=== PATIENT | male | born 1945 | race Caucasian/White ===

== ENCOUNTER 2018-09-17 09:56 | Inpatient (IN) ==
[2018-09-17] MEDS ORDERED: NS 2,000 ML ONE (10:10)
[2018-09-17] MEDS ORDERED: NS 2,000 ML IV ONE (11:25)
--- NOTE | 2018-09-17 11:43 | Diag Imaging Result Doc PS360 ---
EXAM: CHEST-1 VIEW 09/17/2018 HISTORY: hypotensive TECHNIQUE: AP portable upright at 1129 COMMENT: There is cardiomegaly. There are sternotomy wires. There is mild interstitial pulmonary edema. There are no previous studies available for comparison. IMPRESSION: Cardiomegaly and mild pulmonary edema. Electronically signed by Jerardo Yanez 09/17/2018 11:41 AM
--- NOTE | 2018-09-17 12:58 | EKG Report ---
Test Performed on : 09/17/2018 10:18:56 AM Test Reason : AFIB Blood Pressure : / mmHG Vent. Rate : 109 BPM Atrial Rate : 092 BPM P-R Int : 000 ms QRS Dur : 084 ms QT Int : 316 ms P-R-T Axes : 000 -27 187 degrees QTc Int : 425 ms Atrial fibrillation. with rapid ventricular response. ST & T wave abnormality, consider anterolateral ischemia Abnormal ECG No previous ECGs available Unconfirmed Result
[2018-09-17 13:06] LABS: BASO# 0.03 X1000 (0.0-0.2); BASO% 0.2 % (0.0-0.8); IMM GRAN# 0.05 X1000 (0.0-0.04); IMM GRAN% 0.3 % (0.0-0.5); LYMPH# 2.39 X1000 (1.2-3.4); LYMPH% 15.3 % (20.5-51.1); MCH 28.6 PG (27-31); MCHC 32.6 g/dL (33-37); MCV 87.9 FL (81-99); MONO# 2.61 X1000 (0.11-0.59); MONO% 16.7 % (1.7-9.3); MPV 10.7 FL (7.4-10.4); NEUT# 10.56 X1000 (1.4-6.5); NEUT% 67.5 % (42.2-75.2); PLT 150 X1000 (130-400); RBC 4.89 XMIL (4.7-6.1); RDW 14.1 % (11.5-14.5); WBC 15.64 X1000 (4.8-10.8)
[2018-09-17 13:17] LABS: ALBUMIN 3.5 g/dL (3.5-5.0); CREATININE 7.3 mg/dL (0.7-1.2); POTASSIUM 4.5 mmol/L (3.5-5.1); TOTAL BILIRUBIN 0.22 mg/dL (0.20-1.00); TOTAL PROTEIN 6.9 g/dL (6.3-8.3)
[2018-09-17] MEDS ORDERED: VANCOMYCIN 1 GM/NS 1 GM/250 ML IVPB IV ONE (13:52)
[2018-09-17] MEDS ORDERED: ZOSYN 3.375 GM in NS 50 ML IV ONE (13:52)
[2018-09-17 13:57] LABS: LYMPHS 14 % (21-51); MONO 15 % (1-9); POLYCHROM 1+; SEGS 71 % (42-75)
[2018-09-17] MEDS ORDERED: NEO-SYNEPHRINE 50 MG in NS 250 ML IV SCH (14:00)
--- NOTE | 2018-09-17 14:56 | Diag Imaging Result Doc PS360 ---
EXAM: CT ABDOMEN/PELVIS W/O CONTRAST 09/17/2018 HISTORY: N/V/D, leukocytosis, elev lactate TECHNIQUE: This exam was performed using automated exposure control, adjustment of mA or kV according to patient size, and/or use of iterative reconstruction technique. COMMENT: There is minimal fibrosis in the posterior costophrenic sulcus of the right lower lobe, this was present at the time the previous study of 04/01/2018. The liver is hypodense suggesting fatty change. The spleen and adrenal glands are not enlarged. The pancreas is grossly normal considering the lack of contrast. There has been cholecystectomy. There are vascular calcifications in the aorta and its branches including a branch vessel in the left renal sinus. There is a similar finding in the right kidney. There is no evidence of nephrolithiasis or hydronephrosis. There is fluid in the colon without evidence of mucosal thickening. There are some segments of small bowel which are distended containing fluid without definite transition zone. There is a loop of small bowel in the right lower quadrant around image 136 which may demonstrate some mucosal thickening. There is no evidence of acute bony abnormality. There is diverticulosis in the sigmoid colon without evidence of diverticulitis. There are calcifications anterior to the sigmoid colon which have not changed since the previous study. The appendix is normal in appearance. There is fluid in the rectum. IMPRESSION: The possibility of enterocolitis is suggested. No evidence of abscess, acute diverticulitis or obstructive uropathy is present. Hepatic steatosis. Electronically signed by Jerardo Yanez 09/17/2018 2:53 PM
--- NOTE | 2018-09-17 15:03 | PROVIDER DOCUMENTATION ---
This chart was entered by Radha Chaudhry Scribe, acting as scribe for Parker Sky MD. HPI-Abdominal Pain/GI Problem - General Chief Complaint: N/V/D Stated Complaint: N/V/D Time Seen by Provider: 09/17/18 10:08 Source: patient, family, EMS Allergies/Adverse Reactions: Patient Allergies Allergy/AdvReac Type Severity Reaction Status Date / Time No Known Allergies Allergy Verified 09/17/18 11:22 Home Medications: Home Medication List Medication Instructions Recorded Confirmed Last Taken Type ATORVAstatin [Lipitor] 20 mg PO DAILY 09/17/18 09/17/18 Unknown History Amlodipine Besylate 2.5 mg PO DAILY 09/17/18 09/17/18 Unknown History Apixaban [Eliquis] 5 mg PO BID 09/17/18 09/17/18 Unknown History Cholecalciferol (Vit D3) [Vitamin 1 tab PO DAILY 09/17/18 09/17/18 Unknown History D3] Clopidogrel [Plavix] 75 mg PO DAILY 09/17/18 09/17/18 Unknown History Cyanocobalamin (Vitamin B-12) 1,000 mcg PO DAILY 09/17/18 09/17/18 Unknown History [B-12] Glipizide 5 mg PO BID 09/17/18 09/17/18 Unknown History Latanoprost 0.005% Oph Soln 1 drp BOTH EYES HS 09/17/18 09/17/18 Unknown History [Xalatan 0.005% Oph Soln] Lisinopril 10 mg PO TID 09/17/18 09/17/18 Unknown History Metformin [Glucophage] 500 mg PO BID 09/17/18 09/17/18 Unknown History Nitroglycerin Sl [Nitroglycerin] 1 tab SUBLINGUAL PRN PRN 09/17/18 09/17/18 Unknown History Terazosin [Hytrin] 2 mg PO BID 09/17/18 09/17/18 Unknown History - History of Present Illness-ABD Nature of Presenting Problems: 72 yowm presents to the ed with c/o n/v/d and COELHO for 3 days. pt sts no abdominal pain just nausea with vomiting and diarrhea. pt on exam looks fatigued and is resting in bed with no active vomiting seen Quality of Pain: reports: other (denies pain c/o causea) Onset/Duration: reports: 3 days ago Timing: reports: still present, intermittent Activities at Onset: reports: light activity Exposure to sick contacts?: No Modifying Factors: improves with: nothing Associated Symptoms: reports: diarrhea, fatigue, headaches, nausea, vomiting. denies: back/neck pain, chest pain, dizziness, fever/chills, shortness of breath Last BM: this morning Dark Stools Present?: reports: bright red blood (when wipes) Rectal Bleeding: reports: bright red blood on paper (but sts from diarrhea) # of Diarrhea Episodes: 4 Rectal Pain: reports: none # of Vomiting Episodes: 3 Emesis Description: reports: other (food) Bruising or Bleeding Gums?: No Similar Symptoms Previously?: No Recently seen or treated by another doctor?: No Review of Systems - Adult - REVIEW OF SYSTEMS - ADULT Constitutional: reports: jeremiah. denies: chills, fever Eyes: reports: no symptoms reported Ears, Nose, Mouth & Throat: reports: no symptoms reported Cardiovascular: denies: chest pain, palpitations Respiratory: denies: cough, shortness of breath, wheezing Gastrointestinal: reports: see HPI, diarrhea, nausea, rectal bleeding (when wipes), vomiting. denies: abdominal pain Genitourinary: reports: no symptoms reported Musculoskeletal: denies: back pain, neck pain Integumentary: reports: no symptoms reported Neurological: reports: see HPI, headache/migraines. denies: ataxia, dizzine ss/vertigo, numbness, paresthesia, seizure, slurred speech, syncope, tremors Psychiatric: reports: no symptoms reported Endocrine: reports: no symptoms reported Hematologic/Lymphatic: reports: no symptoms reported Allergic/Immunologic: reports: no symptoms reported All Other Systems: Reviewed and Negative Past History - Adult - PAST MEDICAL HISTORY-ADULT Review of Records: reports: Nursing Assessment Review, Medications Reviewed Major Childhood Illnesses: reports: denies history Cardiovascular: reports: A-Fib, CAD, HTN Respiratory: reports: denies history Gastrointestinal: reports: denies history Genitourinary: reports: kidney stones Musculoskeletal: reports: denies history Hand Dominance: Right Handed Neurological: reports: denies history Psychiatric: reports: denies history Endocrine/Immune: reports: denies history Other Conditions: reports: other cancer - PRIOR SURGERIES/PROCEDURES Surgical/Procedure History: reports: CABG, cholecystectomy - IMMUNIZATION STATUS Childhood Immunizations: See Nurse Assessment Flu Vaccine: See Nurse Assessment - FAMILY HISTORY Family History: reviewed, not pertinent - SOCIAL HISTORY Smoking: denies Substance Use: denies Living Situation: family Physical Exam-General - PHYSICAL EXAM-ADULT Initial Vital Signs Reviewed: Yes (BP-87/41 HR-109) - CONSTITUTIONAL General Appearance: alert, mild distress, obese. negative: appears well - EYES Eyes: PERRL/EOMI, pink conjunctivae - HEAD, EARS, NOSE, MOUTH & THROAT HENMT: normocephalic/atraumatic. negative: moist mucous membranes (dry) - NECK Neck: non-tender, full range of motion, normal inspection - RESPIRATORY Respiratory: chest non-tender, lungs clear, normal breath sounds - CARDIOVASCULAR Cardiovascular: irregularly irregular (afib) - GASTROINTESTINAL (ABDOMEN) Abdominal Exam: soft, abnormal bowel sounds (hyper), tenderness (RUQ and RLQ with palpation). negative: rigid, rebound - LYMPHATIC Lymphatic: no adenopathy - MUSCULOSKELETAL Back Exam: normal inspection, no CVA tenderness, no vertebral tenderness Extremity: normal range of motion, swelling (BLE) - SKIN Integumentary: warm/dry, pallor - NEUROLOGIC Neurologic: grossly normal - PSYCHIATRIC Psych/Mental Status: normal mood/affect, normal thought content, normal thought process, oriented x 3 Progress - PLAN OF CARE/RESULTS Progress/Plan/Lab Results: Vital Signs - 8 hr 09/17/18 10:05 Temperature 97.4 F L Pulse Rate 128 H Respiratory Rate 18 Blood Pressure 80/52 Orders Category Date Time Status 0.9% Sodium Chloride Inj [Ns] 1,000 ml Med 09/17/18 10:10 Discontinued .ROUTE As directed Result Diagrams: 09/17/18 12:50 09/17/18 12:50 - REASSESSMENT Reassessment #1 Time Reassessed: 11:27 Status: unchanged Reassessment Comment: pt is resting in bed Reassessment #2 Time Reassessed: 14:08 (HR down, still hypotensive, abd is soft, NT) Status: improving - EKG 1 Time of EKG reading by physician:: 10:32 EKG Read and Signed by:: Parker Sky EKG Interpretation (*Must complete 3 of following elements*): Abnormal Rate: 109 Rhythm: afib with rvr [place]aver: normal QRS: normal VA Interval: normal Comments: st and t wave abnormality, consider anterolateral ischemia - XRAY 1 XRAY: Bilateral XRAY Study: Chest Impression: See EMR Report (EXAM: CHEST-1 VIEW 09/17/2018 HISTORY: hypotensive TECHNIQUE: AP portable upright at 1129 COMMENT: There is cardiomegaly. There are sternotomy wires. There is mild interstitial pulmonary edema. There are no previous studies available for comparison. IMPRESSION: Cardiomegaly and mild pulmonary edema. Electronically signed by Jerardo Yanez 09/17/2018 11:41 AM 09/17/18 1141 Interpreting Physician: Jerardo Yanez MD Dictated D ate/Time: 09/17/18 1140 cc: Parker Sky MD; Magalys Driscoll MD) - CONSULTS/PCP/HOSPITALIST Notification #1 *Consult/PCP/Hospitalist*: [place] Time Discussed: 15:03 Consult Disposition: Will see in ED, Admit Departure - Departure Date of Disposition Decision: 09/17/18 Time of Disposition Decision: 14:04 DIAGNOSIS: Atrial fibrillation with RVR, Hypotension, Acute kidney injury Sepsis Qualifiers: Sepsis type: sepsis due to unspecified organism Qualified Code(s): A41.9 - Seps is, unspecified organism Disposition: ADMITTED INPATIENT 09 Certified Medical Emergency: Emergent Condition: Fair Referrals and Follow-Ups: Magalys Driscoll MD [Primary Care Provider] - - Critical Care Note This patient required my direct & personal management of CC.: Yes Total Time (mins): 40 Critical Care Statement: This patient required my direct personal management to treat or rule out processes, the absence of which, could potentiallly result in sudden, clinically significant life or limb threatening deterioration. Attestation - Physician/ TROY Attestation Patient care was provided by Advanced Practice Provider:: No The physician spent face to face time with patient:: Yes Advanced Practice Provider documentation review:: Supervising physician onsite and consulted in the evaluation and care of this patient. The physician did have a face to face encounter with the patient. This chart was documented by the indicated scribe, (Radha Chaudhry Scribe) and accurately reflects the services I performed and decisions made by me, Parker Sky MD, as attested by the provider's signature.
[2018-09-17] MEDS ORDERED: HUMALOG SUBQ SCH (16:00)
--- NOTE | 2018-09-17 16:59 | EKG Report ---
Test Performed on : 09/17/2018 4:55:41 PM Test Reason : reassess afib Blood Pressure : / mmHG Vent. Rate : 099 BPM Atrial Rate : 087 BPM P-R Int : 000 ms QRS Dur : 080 ms QT Int : 316 ms P-R-T Axes : 000 -38 182 degrees QTc Int : 405 ms Atrial fibrillation. Left axis deviation T wave abnormality, consider inferior ischemia T wave abnormality, consider anterolateral ischemia Abnormal ECG When compared with ECG of 17-SEP-2018 10:18, (Unconfirmed) No significant change was found Confirmed by Ashley NGUYEN, Elvin ([id number]) on 09/17/2018 6:26:29 PM
[2018-09-17] MEDS ORDERED: NS 1,000 ML IV SCH (17:07)
[2018-09-17] MEDS ORDERED: ZOFRAN IV PRN (17:07)
[2018-09-17] MEDS ORDERED: VANCOMYCIN IV PER PHARMACY MISC SCH (17:07)
[2018-09-17] MEDS ORDERED: NS 1,000 ML IV ONE (17:07)
[2018-09-17 17:25] LABS: ALLEN TEST YES; BE -15.1 mmoll (-3.0-3.0); BLOOD TYPE ARTERIAL; HCO3-(ACT) 13.1 mmoll (20.0-26.0); METHB 1.3 % (0.0-1.5); O2(CT) 20.7 mL/dL (15.0-23.0); O2HB 95.4 % (95.0-99.0); PCO2(98.6) 24 mmHg (35-45); PO2(98.6) 90 mmHg (60-100); SAMPLE BLOOD; SAO2 98.6 % (95.0-100.0); THB 15.4 g/dL (11.5-17.4); pH(98.6) 7.24 (7.35-7.45)
[2018-09-17 17:26] LABS: MODALITY ROOM AIR
--- NOTE | 2018-09-17 17:54 | HISTORY AND PHYSICAL ---
PRIMARY CARE PROVIDER: Dr. Magalys Driscoll. CYBER SECURITY CONSULTANT: Dr. Freeman. CHIEF COMPLAINT: Nausea, vomiting, and diarrhea. HISTORY OF PRESENT ILLNESS: Mr. Galvan is an ill-appearing, 72-year-old male who carries a past medical history of atrial fibrillation, coronary artery disease, hypertension, kidney stones, basal cell skin cancer, diabetes mellitus, just moved here from [place] over a year ago. Per his , around 3:30 a.m. on Saturday morning he woke up with nausea, vomiting, and diarrhea. He vomited about every half hour for the first 10 hours but throughout the rest of the day Saturday he did not have any p.o. intake. On Saturday he had a half a cup of Jell-O, some ice chips, and some sips of cola. He was able to keep those down. However, any time she would try to crush up his medications and give them to him, 5 minutes later he would vomit them back up. This has been ongoing since Saturday. He has had numerous episodes of diarrhea. She has had to change their bed sheets over 5 times. She states that they ate the same diet, the same foods. She is unsure if he maybe picked up stomach virus at the store. However, they have been eating the same foods since prior to Saturday. She brought him in the ED because he was too weak and could not keep anything down. In the ER, he did have an elevated white count, a BUN of 46, and a creatinine of 7.3. Abdomen and pelvis CT showed the possibility of enterocolitis. He had a lactate of 3. His chest x-ray did not show any pneumonia. It did show cardiomegaly and some mild pulmonary edema. He was initiated on the sepsis protocol, broad-spectrum antibiotics. He has been given 3 L bolus of fluid. He was also in atrial fibrillation with RVR. He continues to be in atrial fibrillation; however, he does not appear to be in RVR. We are rechecking an EKG. He had to be placed on a Arron-Synephrine drip for hypotension in the 70s. He is hanging around upper 80s and 90s at this time. Heart rate is anywhere from 80s to low 100s. We will admit him to the ICU for further evaluation and treatment. PAST MEDICAL HISTORY: 1. Atrial fibrillation with RVR. 2. Coronary artery disease. 3. Hypertension. 4. Kidney stones. 5. Basal cell skin carcinoma. 6. Diabetes mellitus. PAST SURGICAL HISTORY: 1. CABG x2 in [place]. 2. Cholecystectomy. SOCIAL HISTORY: The patient lives in [place]. He just moved from [place] with his 1 year ago for group home and family. FAMILY HISTORY: Reviewed and noncontributory. REVIEW OF SYSTEMS: A 14 point review of systems completely negative except for those mentioned in HPI. ALLERGIES: No known drug allergies. HOME MEDICATIONS: 1. Norvasc 2.5 mg p.o. daily. 2. Eliquis 5 mg p.o. b.i.d. 3. Lipitor 20 mg p.o. daily. 4. Vitamin D3 one tablet p.o. daily. 5. Plavix 75 mg p.o. daily. 6. Vitamin B12 1000 mcg p.o. daily. 7. Glipizide 5 mg p.o. b.i.d. 8. Xalatan 0.005% ophthalmic solution, 1 drop both eyes at bedtime. 9. Lisinopril 10 mg p.o. t.i.d. 10. Glucophage 500 mg p.o. b.i.d. 11. Nitroglycerin sublingual p.r.n. chest pain. 12. Hytrin 2 mg p.o. b.i.d. PHYSICAL EXAMINATION: VITAL SIGNS: Temperature is 97.4 degrees. Initial heart rate was in the 150s. He is now 92. Respirations 16. Blood pressure upon arrival was 80s over 50s, dipped down to the 70s. He is hanging around low 80s upper 90s over 50s and 60s. O2 saturation is 96% on room air. GENERAL: Mr. Galvan is an ill-appearing, 72-year-old male who is lying on the stretcher, in no acute distress. HEENT: Atraumatic, normocephalic. SHIRLEY. Mucous membranes are dry. NECK: Supple. Trachea midline. CARDIOVASCULAR: Irregular rate and rhythm. No murmurs, gallops, or rubs noted. RESPIRATORY: Lung sounds clear bilaterally. ABDOMEN: Soft, nontender, nondistended. Positive bowel sounds 4 quadrants. EXTREMITIES: Lower extremities negative for edema. No signs of clubbing or cyanosis. NEUROLOGIC: Patient is sleepy, but he does awaken easily. He answers questions appropriately. He follows commands and moves all extremities. No focal deficits noted. SKIN: Appears to be warm, dry, and intact. DIAGNOSTIC DATA: 1. Abdomen and pelvis CT: Possibility of enterocolitis is suggested. No evidence of abscess, acute diverticulitis, or obstructive uropathy is present. Hepatic steatosis. 2. Chest x-ray: Cardiomegaly and mild pulmonary edema. LABORATORY DATA: White count 15, hemoglobin and hematocrit 14 and 43, platelet count is a 150,000. Chemistry: Sodium 137, potassium 4.5, BUN 46, creatinine 7.3, blood glucose is 129. Plasma lactate is 3. ASSESSMENT AND PLAN: 1. Sepsis, believed to be related to a enterocolitis. We will check stool studies. Continue with IV hydration. He was initiated on the sepsis protocol. He has been given 3 L of fluid. We will continue with high rate IV fluids, broad-spectrum antibiotics. Check stool cultures. Antiemetics. 2. Hypovolemia secondary to nausea, vomiting, and diarrhea. We will hold him NPO except for sips of water and ice chips or now. We will continue with antiemetics. Check stool cultures. 3. Atrial fibrillation with rapid ventricular response. Patient's heart rate is better with aggressive hydration. 4. Anion gap metabolic acidosis, continue with IV hydration, check ABG may switch to LR or bicarb drip, await renals recommendations as well. 5. Hypotension secondary to sepsis/shock initiated on Arron-Synephrine drip. 6. Hypertension. Continue Arron-Synephrine. 7. Acute renal failure. Probable in the setting of dehydration secondary to his nausea, vomiting, and diarrhea. We will continue with aggressive IV hydration. We will check extra labs. Consult Nephrology. Check a renal ultrasound in the a.m. 8. Diabetes mellitus. Will place him on pattern blood sugars and sliding scale. 9. Coronary artery disease status post coronary artery bypass graft. Aware. 10. Hypertension. The patient is actually hypotensive. 11. Basal cell skin cancer history. Aware. 12. Further recommendations to follow physician evaluation, laboratory and diagnostic data. Dictated by NGHIA Carranza for Stanley Zambrano MD cc: MD Magalys Aguilar MD Luis N. Freeman, MD [facility] CENTERMarleni
[2018-09-17] MEDS: MAXIPIME 1 GM in NS 50 ML IV SCH (18:20)
--- NOTE | 2018-09-17 18:33 | HISTORY AND PHYSICAL ---
ADDENDUM TO HISTORY AND PHYSICAL: Mr. Sandoval is a 72-year-old gentleman who came to the emergency room today. He was just so weak and feeble where the gave me most of the history. Mr. Sandoval is known to have atrial fibrillation, hypertension, coronary artery disease status post CABG 2 times, follows up with Dr. Freeman, who seems to have been in his regular state of health until 3 days ago after Saturday judaism he started having remarkable diarrhea and vomiting, which went on for most of the day. It continued for the past 3 days. Has just been had just been extremely weak and bed-bound, so the decided to bring him to the emergency room today. Upon presentation, he was found to be remarkably hypotensive with initial blood pressure of 80/57. It has gone all the way down to 75/50 at one point. He was also in atrial fibrillation RVR, but the rate is a lot better now. PHYSICAL EXAMINATION: VITAL SIGNS: His current vitals: Blood pressure is 95/62, pulse is 98, respirations 17, temperature was 97.4. GENERAL: Physical exam showed Mr. Galvan is remarkably dehydrated with about 3+ dryness in the mucosa. Capillary refill is remarkably reduced. CHEST: Clear to auscultation. CARDIOVASCULAR: Irregularly irregular. There is an old sternotomy scar consistent with history of CABG. ABDOMEN: Soft, minimally tender in the epigastrium. Bowel sounds are present and hyper hyperactive. EXTREMITIES: No pedal edema. There is an old scar in the right thigh consistent with a harvest of vein for the surgery before. CENTRAL NERVOUS SYSTEM: Patient is awake, alert and oriented. LABORATORY DATA: WBC is 15.65, platelet count is 150,00. Differential is unremarkable. Creatinine is 7.3. The latest we have on him is from 03/04/2018, and that was normal. ABG shows a a bicarb of 3, with a gap of 20 and plasma lactate is 3.0. ABG shows a pH of 7.24, with pCO2 of 24, which is well compensated. At the time of the dictation, a CT scan of the abdomen and pelvis did show possibility of enterocolitis suggested. Chest x-ray showed cardiomegaly, mild pulmonary edema. ASSESSMENT: 1. Hypotension likely due to hypovolemic shock versus septic shock. We will continue to adequately fluid resuscitate Mr. Galvan, cover him for now with IV antibiotics as we will await the cultures. 2. High anion gap metabolic acidosis secondary to lactic acid from shock. 3. Acute renal failure. Creatinine is up to 7.3. We will continue to adequately hydrate the patient and re-evaluate the labs in the morning. Hopefully, we should see a good trend. We are going to put a Wallace catheter to document strict I's and O's. 4. History of coronary artery disease status post CABG noted. 5. History of atrial fibrillation, currently in RVR. I presume this is because of the ongoing hypovolemic shock or the septic shock. We will continue fluid resuscitation. Hopefully, that should also take care of the rate. 6. Enterocolitis. Presumably this is viral in etiology; however, do stool studies to rule out any bacterial infection. The patient will be on antibiotics. I have changed the vancomycin and Zosyn because of the renal failure to cefepime with daptomycin. PLAN: In general, Mr. Galvan is in shock which we suspect is a combination of hypovolemic shock and septic shock. We are going to continue with adequate fluid resuscitation with lactated Ringer's. Continue with IV antibiotics, await for the culture results. He is still on phenylephrine for pressor support. The patient will be admitted to the ICU. I have explained the plan in detail with the and the patient himself. Both of them voiced understanding. TIME SPENT: Critical time spent was 45 minutes. Please refer to the details of the HPI in the chart which was dictated by the nurse practitioner. I have reviewed it and I agree with the content. cc: Stanley Zambrano MD
[2018-09-17 19:03] LABS: URINE SOURCE CATH
[2018-09-17] MEDS: LR 1,000 ML IV SCH (19:25)
[2018-09-17 19:29] LABS: BILIRUBIN URINE NEGATIVE (NEGATIVE); BLOOD URINE MODERATE (NEGATIVE); COLOR YELLOW; GLUCOSE URINE 100 mg/dL (NEGATIVE); KETONE URINE NEGATIVE (NEGATIVE); LEUKOCYTES URINE NEGATIVE (NEGATIVE); NITRITE URINE NEGATIVE (NEGATIVE); PH URINE 5.5; PROTEIN URINE 200 mg/dL (NEGATIVE); SP GRAVITY URINE 1.018; TURBIDITY URINE HAZY (CLEAR); UROBILINOGEN URINE NORMAL (NORMAL)
[2018-09-17 19:32] LABS: UR CREAT RANDOM 321.7 mg/dL (14-26)
--- NOTE | 2018-09-17 19:32 | Diag Imaging Result Doc PS360 ---
EXAM: US RENAL 2 (RETROPER) COMPLETE 09/17/2018 HISTORY: ARF TECHNIQUE: Renal ultrasound COMMENT: The kidneys are without evidence of hydronephrosis or mass. The right kidney is 9.5 x 4.6 x 5.8 cm the left is 13.2 x 5.4 x 5.3 cm. The bladder is not distended. IMPRESSION: No evidence of acute disease or obstructive uropathy. Electronically signed by Jerardo Yanez 09/17/2018 7:29 PM
[2018-09-17 19:37] LABS: UR EPITHELIAL CELLS >10 /HPF (<10); URINE BACTERIA NEGATIVE /HPF; URINE RBC <10 /HPF (<10)
[2018-09-17] MEDS ORDERED: ZOSYN 3.375 GM in NS 50 ML IV SCH (20:00)
[2018-09-17 20:33] LABS: URINE CASTS GRANULAR PRESENT; URINE CRYSTALS NONE SEEN; URINE SMALL ROUND CELLS NONE SEEN; URINE YEAST NONE SEEN
[2018-09-17] MEDS: CUBICIN 600 MG in NS 100 ML IV SCH (20:45)
[2018-09-17] MEDS: XALATAN 0.005% OPH SOLN BOTH EYES SCH (21:00)
[2018-09-18 00:39] LABS: ALB/GLOB RATIO 1.3; ALBUMIN 3.5 g/dL (3.5-5.0); CALCIUM 7.6 mg/dL (8.8-10.2); CREATININE 6.9 mg/dL (0.7-1.2); MAGNESIUM 1.5 mg/dL (1.5-2.7); POTASSIUM 3.7 mmol/L (3.5-5.1); TOTAL BILIRUBIN 0.26 mg/dL (0.20-1.00); TOTAL PROTEIN 6.3 g/dL (6.3-8.3)
[2018-09-18] MEDS: LR 1,000 ML IV SCH (01:55)
[2018-09-18] MEDS ORDERED: CALMOSEPTINE OINTMENT TOP PRN (03:35)
[2018-09-18] MEDS: MAXIPIME 1 GM in NS 50 ML IV SCH ×2 (05:30→17:18)
[2018-09-18 05:33] LABS: BASO# 0.03 X1000 (0.0-0.2); BASO% 0.3 % (0.0-0.8); EOS# 0.01 X1000 (0.0-0.7); EOS% 0.1 % (0.0-10.0); HEMATOCRIT 40.7 % (42.0-52.0); HEMOGLOBIN 13.9 g/dL (14.0-18.0); IMM GRAN# 0.02 X1000 (0.0-0.04); IMM GRAN% 0.2 % (0.0-0.5); LYMPH# 1.69 X1000 (1.2-3.4); LYMPH% 16.2 % (20.5-51.1); MCH 28.9 PG (27-31); MCHC 34.2 g/dL (33-37); MCV 84.6 FL (81-99); MONO# 1.48 X1000 (0.11-0.59); MONO% 14.2 % (1.7-9.3); MPV 10.3 FL (7.4-10.4); PLT 185 X1000 (130-400); RBC 4.81 XMIL (4.7-6.1); RDW 14.4 % (11.5-14.5); WBC 10.43 X1000 (4.8-10.8)
[2018-09-18 06:06] LABS: ALB/GLOB RATIO 1.1; ALBUMIN 3.3 g/dL (3.5-5.0); CALCIUM 7.3 mg/dL (8.8-10.2); CREATININE 7.3 mg/dL (0.7-1.2); MAGNESIUM 1.4 mg/dL (1.5-2.7); POTASSIUM 3.6 mmol/L (3.5-5.1); TOTAL BILIRUBIN 0.22 mg/dL (0.20-1.00); TOTAL PROTEIN 6.3 g/dL (6.3-8.3)
[2018-09-18] MEDS ORDERED: MAGNESIUM SULFATE 2 GM/S.W.I. 2 GM/50 ML IVPB IV ONE (06:08)
[2018-09-18 06:31] LABS: ALLEN TEST YES; BE -16.6 mmoll (-3.0-3.0); BLOOD TYPE ARTERIAL; HCO3-(ACT) 11.9 mmoll (20.0-26.0); METHB 1.8 % (0.0-1.5); MODALITY ROOM AIR; O2(CT) 19.4 mL/dL (15.0-23.0); O2HB 95.8 % (95.0-99.0); PCO2(98.6) 21 mmHg (35-45); PO2(98.6) 104 mmHg (60-100); SAMPLE BLOOD; THB 14.3 g/dL (11.5-17.4); pH(98.6) 7.23 (7.35-7.45)
[2018-09-18] MEDS: SODIUM BICARBONATE 8.4% 150 MEQ in STERILE WATER INJ. 1,000 ML IV SCH ×2 (06:36→17:19)
[2018-09-18 07:01] LABS: CK INDEX 2.4 (0.0-2.5); CK-MB 5.06 ng/mL (0.0-5.0)
--- NOTE | 2018-09-18 07:08 | Diag Imaging Result Doc PS360 ---
EXAM: CHEST-PORTABLE 09/18/2018 HISTORY: sob TECHNIQUE: AP portable at 0232 hours COMMENT: There is some obscuration of the left heart border which is probably due to atelectasis or pneumonia in the lingula. This was not the case on 09/17/2018, however some difference in the positioning of the radiograph may be in part responsible for this. The current study is an apical lordotic projection. IMPRESSION: Questionable lingular atelectasis versus pneumonia. Electronically signed by Jerardo Yanez 09/18/2018 7:06 AM
--- NOTE | 2018-09-18 07:45 | EKG Report ---
Test Performed on : 09/18/2018 06:46:42 AM Test Reason : chest pain Blood Pressure : / mmHG Vent. Rate : 076 BPM Atrial Rate : 076 BPM P-R Int : 160 ms QRS Dur : 084 ms QT Int : 386 ms P-R-T Axes : 066 -35 110 degrees QTc Int : 434 ms Normal sinus rhythm. Left axis deviation T wave abnormality, consider anterolateral ischemia Abnormal ECG When compared with ECG of 17-SEP-2018 16:55, Sinus rhythm. has replaced Atrial fibrillation. Confirmed by Ashley NGUYEN, Elvin ([id number]) on 09/18/2018 8:39:08 AM
--- NOTE | 2018-09-18 10:04 | NEPHROLOGY CONSULTATION ---
DATE: 09/18/2018 REASON FOR ADMISSION: Weakness with nausea and vomiting since Saturday evening. REASON FOR CONSULT: Acute kidney injury with acidosis. HISTORY OF PRESENT ILLNESS: Mr. Galvan is a 72-year-old, white male who presented to the emergency room yesterday for complaints of weakness with inability to get up and perform his ADLs. The patient has known atrial fibrillation with anticoagulation of both Plavix and Eliquis. He is followed by Dr. Freeman with a status post CABG x2. The patient states that he had been in his normal health until Saturday evening, at which time he started with nausea and vomiting. He started having severe diarrhea. States that in the last 2 days, the nausea and vomiting have improved, though he has not been able to eat or drink. He continues with diarrhea stools. He continued to take his medications consisting of Plavix, Eliquis, amlodipine, lisinopril, and metformin. Upon presentation, he was found to be remarkably hypotensive. His initial blood pressure was 80/57, down to 75/50, now up to 143/56. He has received fluid volume resuscitation. He had been in atrial fibrillation with RVR, though now he is rate controlled. He denies chest pain. He denies any increased work of breathing. Does complain of abdominal discomfort secondary to his retching. Positive for nausea, vomiting, and diarrhea, which have all improved over the last 24 hours with IV fluids. Negative for edema. No fever or chills on presentation. PAST MEDICAL HISTORY: Atrial fibrillation with rapid ventricular response. He is on anticoagulation therapy. Coronary artery disease, hypertension, previous nephrolithiasis, basal cell skin carcinoma, diabetes mellitus type 2. PAST SURGICAL HISTORY: He has had a cholecystectomy and CABG x2 performed in [place]. SOCIAL HISTORY: He is . He lives in [place]. Moved with his for custodial within the last year to be near family. FAMILY HISTORY: Negative for kidney disease. Positive for heart disease. ALLERGIES: Listed as no known drug allergies. HOME MEDICATIONS: Eliquis, Plavix, Norvasc, lisinopril, nitroglycerin sublingual. He takes glipizide, Glucophage. He is on Hytrin, B12, vitamin D3, Lipitor, Xalatan ophthalmic eyedrops. REVIEW OF SYSTEMS: Review of systems x10 with pertinent positives listed above in the HPI. VITAL SIGNS: The patient's most recent vital signs, last temperature 97.9, blood pressure on examination was 143/56, heart rate 83, respirations 18. He is currently on room air. His last recorded saturation is 92% to 95%. He has had 1598 in. He has had 400 out per Wallace catheter with approximately 50 mL in his urometer spilling into the bag. LABS: Last labs drawn, sodium 139, potassium 3.6, chloride is 111, CO2 9, BUN 52, creatinine 7.3, glucose 124, anion gap of 19, calcium of 7.3, magnesium of 1.4, albumin of 3.3. Hydroxy D 25 of 21.8. White count 10.43, hemoglobin 13.9, hematocrit 40.7, with a platelet count of 185,000. The patient has elevated CK-MB of 5.06. No troponin present. The patient has been receiving IV fluid resuscitation. He has sterile water with 150 mEq of sodium bicarb 3 ampules running at 125 mL an hour. He was given 2 L of normal saline. He has been treated with Zosyn 3.375 g x1 dose. He is currently on Arron-Synephrine, sodium bicarbonate. He has been started on Cubicin and Maxipime. We will check correct renal dosing. PHYSICAL EXAMINATION: General: This is a 72-year-old, elderly male. He is resting quietly in bed. He appears in no acute distress, though chronically ill. Skin is warm and dry. HEENT: Normocephalic, atraumatic. Conjunctivae are pale. He has SHIRLEY. Mucous membranes are dry. Neck: Supple. Trachea midline. No evidence of JVD. Cardiovascular: Irregular rate and rhythm. This is mostly rate controlled in the 70 to 90 range. Chest: Currently clear to auscultation bilaterally. Equal excursion, on room air. Abdomen: Soft, nontender. Positive bowel sounds. No tenderness noted on light palpation. Genitourinary: A Wallace catheter is in place. No edema present. Extremities: Negative for edema. No clubbing or cyanosis. Neurological: Easily awakens. Alert and oriented x3. Good historian. Integumentary: No rashes or lesions evident to the anterior. Posterior not inspected. Appears to be warm and dry and intact. ASSESSMENT AND PLAN: 1. Acute kidney injury. More than likely, this is multifactorial. The patient has had hypotension, now on Arron-Synephrine. He has had fluid volume resuscitation. During this period of time, he has been on his CHAPINCITO and metformin with volume depletion. We agree with continuing his fluid volume resuscitation with sodium bicarbonate at 125. Monitoring his strict intakes and outputs. Renal ultrasound indicates right kidney measuring 9.5, left of 13.2. We will check his urine electrolytes. 2. Possible sepsis secondary to enterocolitis. Stool is to be checked for stool studies. He continues on intravenous fluid resuscitation. He is on broad-spectrum antibiotics. We will check renal dosing. 3. Electrolytes and acid-base balance. The patient has mixed acidosis with non- anion gap acidosis. Appears to be well compensated at this time. Remains on a sodium bicarbonate drip. 4. Anemia. This is actually in target. 5. Atrial fibrillation with rapid ventricular response. The patient remains on his anticoagulants. PLAN: We will check urine electrolytes. We agree with holding his metformin, his lisinopril. Urine electrolytes currently pending. Continue monitoring Is and Os with fluid volume resuscitation. I would like to thank you for allowing us to follow with this patient. Dictated by NGHIA Fleming for Emiliano Abad MD Face to face encounter, data reviewed, discussed with Radha Curtis on 09/19/18. I agree with the above assessment and plan of care. cc: NGHIA Fleming MD [facility]
[2018-09-18] MEDS: PROTONIX IV SCH ×2 (11:00→20:27)
--- NOTE | 2018-09-18 12:11 | PROGRESS NOTE ---
DATE: 09/18/2018 SUBJECTIVE: This morning Mr. Galvan refers to be feeling a whole lot better. The was at the bedside at the time of the encounter. He refers not to have had any vomiting, but he has had multiple bowel movements documented today, 6 of them; however, he thinks that it has remarkably slowed down. OBJECTIVELY: His current vitals are blood pressure 121/60, pulse is 85, respiration is 15, temperature 98.1 degrees. On general exam, Mr. Galvan is a 72-year-old male he is in bed. Mucosa is pink, slightly dry. Anicteric. Acyanotic. Neck is supple.Chest: Good air entry bilaterally. No crepitations. No rhonchi. Cardiovascular: Regular rate and rhythm. No murmurs, no rubs, no gallops. Gastrointestinal: Abdomen is soft, minimally tender, but bowel sounds are present. Extremities: No pedal edema. Central nervous system: Patient is awake, alert, and oriented x4. Musculoskeletal: There is an old sternotomy scar on the anterior chest wall. LABORATORY DATA: WBC is down to 10.43, hemoglobin is 13.9, platelet count of 185,000. ABG is reviewed; pH is down to 21. Sodium is 139, potassium is 3.6, chloride is 111, bicarbonate is down to 9, the patient's BUN is up to 52, and creatinine has gone up to 7.3. He, however, is making adequate urine. ASSESSMENT: 1. Hypotension on presentation, presumably due to combination of hypovolemic and septic shock. The patient was on phenylephrine for a short period of time. This has been discontinued. We will continue with the fluid resuscitation. 2. High anion gap metabolic acidosis due to lactic acid from shock and also renal failure. The patient's IV fluid has been changed to include bicarbonate. 3. Acute renal failure. Creatinine is up to 7.3 this morning. Urinalysis is suggestive of ATN. We have consulted Nephrology, and we will continue to avoid any nephrotoxins. 4. Enterocolitis, presumably viral in etiology. Stool studies so far seems to be negative. The patient is, however, on IV antibiotics until we have the blood cultures as well as the urine culture report. 5. History of coronary artery disease status post coronary artery bypass grafting. Noted. 6. History of atrial fibrillation with rapid ventricular response on admission, presumably precipitated by the metabolic milieu and the volume depletion. The patient's heart rate is currently under control and is now sinus rhythm. There is a consult, however, for Cardiology to see the patient from yesterday. In general, I think Mr. Galvan is doing a whole lot better. We are going to start him on clear liquids this morning. The phenylephrine was discontinued sometime last night, and his blood pressures have been holding well. He is making adequate urine; however, his renal function seems slightly worse this morning. I think it is indicative of ATN, and we have consulted Nephrology. We are going to put an order to transfer Mr. Galvan to a regular medical floor. We will continue with the IV fluids, the current antibiotics, and await the culture report. cc: Stanley Zambrano MD
--- NOTE | 2018-09-18 12:41 | GASTROENTEROLOGY CONSULTATION ---
DATE: 09/18/2018 REQUESTING PHYSICIAN: Dr. Freeman. PRIMARY CARE DOCTOR: Magalys Driscoll. REASON FOR CONSULTATION: Nausea, vomiting, and diarrhea. HISTORY OF PRESENT ILLNESS: Mr. Galvan is a 72-year-old male who was admitted through the ER today for symptoms of nausea, vomiting, and diarrhea starting on Saturday. According to the patient, he has not been able to keep anything down for the last few days. He has persistent nausea but his vomiting has improved. He has not thrown up today. He continues to have diarrhea. The patient denies any history of sick contacts. He denied any recent travel. He denied any prior history of colitis. The patient denies any blood in the stools or black stools. During admission, he was noted to be acidotic with a creatinine of 7.3 and lactate of 3. He had been given IV fluids in the ER. He was also noted to be hypotensive. Was started on Arron-Synephrine. Cardiology has been consulted for prior history of coronary artery disease. He has a history of 2 bypass surgeries, the last one in 2003. He is on Eliquis and Plavix for a history of atrial fibrillation and coronary artery disease. I had seen him in the clinic last year. At that time, my plan was to look in his stomach for dysphagia but he could not be treated because he could not come off his Eliquis and Plavix at that time. He does complain of intermittent dysphagia to pills. He has been crushing his pills for quite some time now. He had a barium swallow done which showed evidence of a hiatal hernia and possible ring in the distal esophagus. The patient denies any vomiting blood or coffee-grounds emesis. PAST MEDICAL HISTORY: Atrial fibrillation with rapid ventricular response, coronary artery disease, hypertension, kidney stones, basal cell skin carcinoma, diabetes mellitus. PAST SURGICAL HISTORY: CABG x2 in [place] with the last one in 2003, cholecystectomy. SOCIAL HISTORY: He lives in [place]. He just moved from [place] with his 1 year ago for intermediate and family. FAMILY HISTORY: Denied any history of Crohn's disease in the family. No history of colon cancer in the family. REVIEW OF SYSTEMS: Denies any fevers, rigors, chills, chest pain, shortness of breath. Denies any vomiting or passing blood in the stools. Does complain of feeling weak and tired. He is thirsty and wants to start ice chips. He does have a history of arthritis. He denies any other neurologic complaints. ALLERGIES: No known drug allergies. MEDICATIONS IN THE HOSPITAL: Include a bicarb drip, daptomycin, Culturelle 1 capsule b.i.d., latanoprost drops, cefepime, menthol and zinc oxide ointment, and phenylephrine drip, Zofran, Protonix b.i.d., and electrolytes in the form of magnesium sulfate. He was given fluids and IV dose of vancomycin, Zosyn given once. The patient is now put on ice chips. PHYSICAL EXAMINATION: Vital Signs: Temperature of 98.1 degrees, pulse rate of 80, respiratory rate of 14, blood pressure 132/60, saturating 98% on room air. Body weight of 180 pounds. BMI 27.4 kg/m2. General Appearance: The patient is moderately built, moderately nourished, lying in bed, in no acute distress. HEENT: No pallor. No icterus. Pupils equal, reactive to light. Neck: Supple. Abdomen: Protuberant, soft. Mild discomfort on palpation. No rebound. No guarding. Extremities: No cyanosis, clubbing. Neurologic: Alert, awake, oriented x3. LABS: Hemoglobin and hematocrit are 13.9 and 40.7, white count of 10.43, platelet count of 185,000, MCV of 84.6. ABG showing pH of 7.23, pCO2 of 21, PO2 of 104, bicarb of 11.9, and lactate of 0.9. This is on room air. Sodium 139, potassium 3.6, chloride 111, bicarb 9, anion gap of 19, BUN of 52, creatinine of 7.3, glucose of 124, calcium is 7.3, magnesium 1.4. Total bilirubin is 0.22, AST 12, ALT 17, alkaline phosphatase 59, total protein is 6.3, albumin of 3.3, lactate of 1.4. Urinalysis showing moderate blood, positive protein, positive blood, positive glucose, 10-20 white cells. Urine culture is pending. Stool for white cells, none seen. Ova and parasites are currently pending. Stool for C. difficile toxin is negative, C. difficile antigen is negative. Blood cultures have been drawn from yesterday. They are currently pending. A CT scan was also done on admission which showed: 1. Liver is hyperdense, suggesting fatty change. 2. There has been cholecystectomy. 3. Vascular calcifications in the aorta and its branches including the branch vessel in the left renal sinus. 4. There is similar finding in the right kidney. There is fluid in the colon without evidence of mucosal thickening. There are some segments of small bowel which are distended, containing fluid without a definite transition zone. There is a loop of small bowel in the right lower quadrant which may demonstrate some mucosal thickening. There is diverticulosis of the sigmoid colon without evidence of diverticulitis. There are calcifications which are anterior to the sigmoid colon which have not changed since the last study. The appendix is normal in size. There is fluid in the rectum. Impression: The possibility of enterocolitis was suggested. No evidence of abscess, acute diverticulitis, or obstructive uropathy. Hepatic steatosis is noted. IMPRESSION AND PLAN: 1. Nausea, vomiting, and diarrhea, likely secondary to enterocolitis, likely viral. We will check a complete panel and stool studies. We will follow up on the stool studies. The patient will be on intravenous fluids, intravenous antibiotics. We will keep him on Culturelle twice a day. We will start him on ice chips and start him on a liquid diet as tolerated and advance as tolerated. 2. High anion gap metabolic acidosis, likely from elevated lactate. The lactate is improving with hydration. 3. Acute renal injury. Creatinine is 7.3. Nephrology is consulted. 4. History of coronary artery disease, status post coronary artery bypass graft x2. Dr. Freeman was consulted. The patient is on Plavix at home. 5. History of dysphagia. The patient will need outpatient evaluation for possible esophagogastroduodenoscopy once he recovers from acute injury. 6. History of atrial fibrillation. He is on Eliquis, which has been held while in the hospital. 7. Gastrointestinal prophylaxis with proton pump inhibitors. 8. We will follow along. The above plan was discussed with the patient and the family at bedside. All questions were answered. Please call us with any further questions. cc: MD Dmitriy Chen MD
--- NOTE | 2018-09-18 13:05 | CARDIOLOGY CONSULTATION ---
DATE: 09/18/2018 This is a consultation requested by the hospitalist service. REASON FOR CONSULTATION: Paroxysmal atrial fibrillation. HISTORY: Mr. Galvan is an unfortunate 72-year-old male patient of mine, who comes in to the emergency room basically because he woke up at about 4 o'clock in the morning of Saturday, September 15, with severe diarrhea. This continued over the ensuing hours associated with nausea and vomiting. He presented to the ER yesterday, September 17, Saturday, at about 10 in the morning, and they ordered a CT of the abdomen, which diagnosed enterocolitis. The first BUN and creatinine of this patient were significantly elevated; BUN was 51 at the time of presentation, and creatinine was 6.9 at time of presentation. The patient was given IV fluids because he was hypotensive. They found that he was in atrial fibrillation; however, this has corrected with initial maneuvers. He was in atrial fibrillation at 10:18 in the morning on September 17. Eventually, he converted to sinus. His EKG done at 6:46 in the morning, September 18, is normal. He denies having chest pain. He is just weak. His chest x-ray, as expected, shows cardiomegaly, and they reported mild pulmonary edema initially. Subsequent chest x-ray shows questionable lingular atelectasis versus pneumonia. Initial white count was 15,000. Initial blood gases showed pH of 7.24. Initial troponin 0.0106. Urinalysis showed granular casts with some protein in the urine. The patient is feeling still weak and still having diarrhea. I am seeing him at about 12 noon on September 18. PAST HISTORY: The patient's past history is significant for severe coronary heart disease, but he has had previous coronary bypass surgery. Hypertension. He has an abnormal stress test that we knew about last year when we saw him in the office. He has history of paroxysmal atrial fibrillation in the past. Systolic left ventricular dysfunction with hyperlipidemia, diabetes mellitus type 2, peripheral vascular disease. He has had open heart surgery procedures twice, first in 1995 and then in 2003. He has had cholecystectomy, cataract extraction, polyp removal of the colon. SOCIAL HISTORY: He is , retired. He moved from [place], and I had seen him at my office as a new patient on 01/09/2018. He is following with Dr. Sharyn Driscoll who is his physician. The stress test that we did on him on 01/11/2018 showed a small in size reversible lateral defect of moderate intensity. The follow-up nuclear stress test that was done on him in January 2018 showed an inducible ischemia of moderate severity involving the mid lateral wall of the left ventricle. Echocardiogram showed normal left ventricular systolic function, normal pulmonary pressure, no diastolic dysfunction, and no aortic stenosis. At that time, he was advised to pursue medical therapy. ADDITIONAL HISTORY: Includes social history, he has children. FAMILY HISTORY: Positive for coronary heart disease. HOME MEDICATIONS: At the time of his present admission included: Amlodipine 2.5 daily. Eliquis 5 mg twice a day. Lipitor 40 mg daily. Vitamin D3, 1 tablet daily. Plavix 75 mg daily. Glipizide 5 mg twice a day. Lisinopril 10 mg 3 times a day. Metformin 500 twice a day. Terazosin 2 mg twice a day. ALLERGIES: He has no reported allergies. REVIEW OF SYSTEMS: Up until the onset of diarrhea, there was nothing new on his review of systems. He was functioning well, attending adventism like he always does with his , and he just says that the 36 hours prior to the onset of his symptoms, he ate a hamburger at [facility]. PHYSICAL EXAMINATION: Blood pressure 121/60, pulse 85, temperature 98.1 degrees, respirations 16. He is awake, alert, oriented, in no distress.HEENT: Unremarkable. Chest: Diffusely diminished breath sounds. No rales. Heart sounds are regular and rhythmic. No gallop or murmur. Abdomen is slightly distended. Bowel sounds diminished. Extremities showed decreased pulses. No peripheral edema. Neurologic: Nonfocal. Moves 4 extremities. IMPRESSION: 1. The patient presented basically with severe dehydration, hypovolemia secondary to acute gastroenterocolitis. This is probably some sort of a toxic or infectious process. 1. Acute renal failure. 2. Paroxysmal atrial fibrillation that has self-reset to sinus rhythm. 3. History of coronary heart disease status post bypass surgery x2. RECOMMENDATION: At this time, the patient really needs to be treated for the acute renal failure secondary to the massive diarrhea. The fact that he was taking CHAPINCITO inhibitors and antihypertensive medications probably contributed to damage to the kidneys. At this time, I suggest to put on hold all the antiplatelet agents and anticoagulants until his kidney function stabilizes. We will be happy to offer advice thereafter. Please call us if further issues arise. At this time, cardiac-diana, he seems to be stable. cc: Noel Freeman MD
--- NOTE | 2018-09-18 13:12 | ECHO REPORT ---
ORDER DATE: 09/17/2018 INDICATION: Atrial fibrillation with rapid ventricular response. FINDINGS: This is a very difficult study with off axis views; in addition, the patient being in atrial fibrillation with a rapid rate makes this very difficult. 1. The right atrium appears normal in size at 2.9 cm. 2. Mild tricuspid regurgitation. RV systolic pressure of 41. 3. Normal RV size and systolic function. 4. No significant pulmonic insufficiency. 5. Mild left atrial enlargement at 4.3 cm. 6. No mitral valve prolapse. Mild mitral regurgitation. 7. Normal LV size, end-diastolic dimension of 3.7 cm. Mild left ventricular hypertrophy with a posterior and interventricular septal wall thickness of 1.2 cm each. LV systolic function is very difficult to estimate due to off axis views and rapid ventricular response. The ejection fraction appears to be reduced on the order of 40%. I would recommend repetition of this study when the patient has better control of the atrial fibrillation. 8. Aortic valve does appear somewhat calcified, especially on the noncoronary cusp. There does not appear to be any significant gradient identified on this study or the previous study in January of 2018. There is no significant insufficiency. 9. The aorta appears normal in the visualized segments. 10. No pericardial effusion is identified. cc: Bryn Sánchez MD
[2018-09-18 16:06] LABS: UR CREAT RANDOM 133.9 mg/dL (14-26); UR PROT RANDOM 79.4 mg/dL
[2018-09-18] MEDS: SODIUM CHLORIDE 0.9% INJ SCH (20:27)
[2018-09-18] MEDS: CULTURELLE PO SCH (20:27)
[2018-09-18] MEDS: CUBICIN 600 MG in NS 100 ML IV SCH (20:35)
[2018-09-18] MEDS: XALATAN 0.005% OPH SOLN BOTH EYES SCH (23:32)
[2018-09-19] MEDS: MAXIPIME 1 GM in NS 50 ML IV SCH (06:02)
--- NOTE | 2018-09-19 07:23 | EKG Report ---
Test Performed on : 09/19/2018 07:09:03 AM Test Reason : afib Blood Pressure : / mmHG Vent. Rate : 063 BPM Atrial Rate : 063 BPM P-R Int : 170 ms QRS Dur : 088 ms QT Int : 428 ms P-R-T Axes : 056 -36 -16 degrees QTc Int : 437 ms Sinus rhythm. with occasional premature ventricular complexes. Left axis deviation Nonspecific T wave abnormality Abnormal ECG When compared with ECG of 18-SEP-2018 06:46, premature ventricular complexes. are now present T wave inversion no longer evident in Anterolateral leads Confirmed by Ashley NGUYEN, Elvin ([id number]) on 09/19/2018 11:45:26 AM
[2018-09-19] MEDS: SODIUM BICARBONATE 8.4% 150 MEQ in STERILE WATER INJ. 1,000 ML IV SCH ×2 (07:51→17:08)
[2018-09-19 08:12] LABS: BASO# 0.04 X1000 (0.0-0.2); BASO% 0.6 % (0.0-0.8); EOS# 0.14 X1000 (0.0-0.7); EOS% 2.1 % (0.0-10.0); HEMOGLOBIN 12.7 g/dL (14.0-18.0); MCH 28.9 PG (27-31); MCHC 35.3 g/dL (33-37); MONO# 0.94 X1000 (0.11-0.59); MONO% 14.4 % (1.7-9.3); MPV 10.1 FL (7.4-10.4); NEUT# 3.91 X1000 (1.4-6.5); NEUT% 59.9 % (42.2-75.2); PLT 164 X1000 (130-400); RBC 4.39 XMIL (4.7-6.1); RDW 13.8 % (11.5-14.5); WBC 6.53 X1000 (4.8-10.8)
--- NOTE | 2018-09-19 08:44 | CARDIOLOGY PROGRESS NOTE ---
DATE: 09/19/2018 CHIEF COMPLAINT: Diarrhea, weakness, acute renal failure. REASON FOR CONSULTATION: Paroxysmal atrial fibrillation. SUBJECTIVE: The patient is feeling better today. He is not as confused as he was yesterday or as weak. He denies having any chest pain or palpitations. His quality assurance monitor shows sinus rhythm with occasional PVCs. No atrial fibrillation has been noted. OBJECTIVE: Blood pressure is 142/45, temperature 98.9, pulse 61, respirations 20. The patient is awake, alert and oriented, no distress. HEENT is unremarkable. Chest: Clear to auscultation and percussion. Heart: Sounds regular and rhythmic. No gallop or murmur. Abdomen is soft. Extremities showed no edema. Neurologic: Follows commands. Moves all 4 extremities. DIAGNOSTIC DATA: Blood work is pending. IMPRESSION: 1. The patient presented yesterday with acute renal failure secondary to severe gastroenteritis. 2. Paroxysmal atrial fibrillation. This has not recurred. 3. History of severe coronary heart disease, previous open heart surgery twice. 4. History of hypertension. 5. History of hyperlipidemia. 6. History of systolic left ventricular dysfunction. RECOMMENDATIONS: At this time, the patient will be managed by the Nephrology and primary service. From cardiology, there is really nothing to add at this time. I have recommended to put on hold all of the anticoagulants until there are clear signs of improvement of his renal function or decision is made to proceed with renal replacement therapy at which time his medication may have to be resumed at a different dosage. At this time, we are going to stand by. Please call us if there is any acute change in the patient's condition. cc: Noel Freeman MD
[2018-09-19 09:02] LABS: CALCIUM 7.8 mg/dL (8.8-10.2); CREATININE 5.6 mg/dL (0.7-1.2); MAGNESIUM 1.6 mg/dL (1.5-2.7); POTASSIUM 2.8 mmol/L (3.5-5.1)
[2018-09-19] MEDS: TYLENOL PO PRN ×2 (09:23→15:40)
[2018-09-19] MEDS: CULTURELLE PO SCH ×2 (09:23→20:45)
[2018-09-19] MEDS: SODIUM CHLORIDE 0.9% INJ SCH ×2 (09:23→20:45)
[2018-09-19] MEDS: PROTONIX IV SCH ×2 (09:23→20:45)
[2018-09-19 09:41] LABS: EOS 2 % (1-10); LYMPHS 20 % (21-51); MONO 4 % (1-9); SEGS 72 % (42-75)
[2018-09-19] MEDS ORDERED: MAGNESIUM SULFATE 2 GM/S.W.I. 2 GM/50 ML IVPB IV ONE (11:04)
--- NOTE | 2018-09-19 13:35 | PROGRESS NOTE ---
DATE: 09/19/2018 SUBJECTIVE: This morning, Mr. Galvan refers to be feeling a lot better. Denies any new complaints. He still has been having diarrhea, but according to the , who was at the bedside at the time of the encounter, it is getting formed. 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 OBJECTIVE: Vital signs: Currently, blood pressure is 113/45, pulse 72, respirations 20, temperature is 99.4. General: Mr. Galvan is a 72-year-old gentleman. He is in bed. He is not in any distress. Mucosa is pink and moist. Neck is supple. No JVD. Chest: Good air entry bilaterally. No crepitations. No rhonchi. Cardiovascular: Regular rate and rhythm. No murmurs. No rubs. No gallops. GI: Abdomen is soft. Minimally tender, but no rebound. No guarding. Extremities: No pedal edema. 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 The patient moves all extremities. Musculoskeletal: There is an old sternotomy scar on the anterior chest wall. DIAGNOSTIC DATA: CBC is reviewed and completely unremarkable. Chemistry shows potassium is 3.8, bicarb is up to 19, and creatinine is down to 5.6. Repeat urine sodium was about 63. Blood cultures so far have been 48 hours negative. Stool culture have been negative. ASSESSMENT: 1. Hypotension on presentation, presumably hypovolemic shock. 2. High anion gap metabolic acidosis due to lactic acid from shock and renal failure, improving. 3. Acute renal injury. Creatinine is down to 5.6. The patient continues to make adequate urine output. Nephrology is onboard. 4. Enterocolitis. Presumably viral in etiology. So far, cultures have been negative. Blood culture is also negative, so I would discontinue the current antibiotics. 5. History of coronary artery disease, status post CABG. Noted. 6. Atrial fibrillation with rapid ventricular response on admission. Resolved. 7. Clinical volume depletion, improving with IV fluids. PLAN: In general, Mr. Galvan is getting better. Hydration status continues to improve. He is making adequate urine. There is only 1 bowel movement documented today, which according to the , is getting some consistency to it. The patient is tolerating a GI soft diet which was also started today. We are going to go ahead and discontinue the IV antibiotics since blood cultures, stool and urine cultures have all been negative, and chest x-ray does not show any pneumonia. cc: Stanley Zambrano MD
[2018-09-19] MEDS: POTASSIUM CHLORIDE 20 MEQ/SWI 20 MEQ/100 ML IVPB IV SCH ×2 (14:32→22:51)
--- NOTE | 2018-09-19 18:56 | NEPHROLOGY PROGRESS NOTE ---
DATE: 09/19/2018 SUBJECTIVE: He is sitting on the toilet. He states that he has been able to tolerate solid food and he has had no nausea or vomiting. He is still having loose to watery bowel movements. OBJECTIVE: Vital Signs: Blood pressure 123/51, heart rate 54, respiration 12, afebrile. General: No acute distress. Skin: Warm and dry. Conjunctivae are pink. Neck: Neck veins are not visible in the erect position. Heart: Regular. No gallops. Lungs: Equal. No crackles or wheezes. Abdomen: Soft, nontender. Bowel sounds are present. Extremities: Have no edema, clubbing, or cyanosis. IMPRESSION: 1. Acute kidney injury. Significant improvement with intravenous fluids and withholding his angiotensin receptor thiago. Continue current care. 2. Metabolic acidosis. Improved with sodium bicarbonate. He does have a moderate anion gap acidosis which is related to his renal failure but his primary metabolic derangement is related to his diarrhea and bicarbonate loss. Continue bicarbonate infusion as above. 3. Hypokalemia. Treated appropriately by the primary team. cc: Emiliano Abad MD
[2018-09-19] MEDS: XALATAN 0.005% OPH SOLN BOTH EYES SCH (20:44)
--- NOTE | 2018-09-19 23:59 | PROVIDER PROGRESS NOTE ---
Progress Note SUBJECTIVE: No acute overnight events. He denies N/V/F, CP, SOB, abdominal pain, rectal bleeding. He is tolerating GI soft diet. OBJECTIVE: Last Vital Signs Temp 97.6 F 09/19/18 19:49 Pulse 55 L 09/19/18 19:49 Resp 19 09/19/18 19:49 BP 138/43 09/19/18 19:49 Pulse Ox 97 09/19/18 19:49 Height 5 ft 8 in Weight 180 lb GEN: awake, alert, NAD HEENT: anicteric, MMM, EOMI NECK: supple, no jvd PULM: CTAB CV: RRR, no murmurs ABD: mild distension, tympanic, NT, BS present EXT: no cce NEURO: nonfocal : jackson in place LABS: 09/19/18 09/19/18 07:20 07:20 WBC 6.53 Hgb 12.7 L Plt Count 164 Sodium 138 Potassium 2.8 L D Chloride 102 Carbon Dioxide 19 L BUN 53 H Creatinine 5.6 H Glucose 114 H Mr. Leobardo Galvan is a 72 year old man with afib, GERD, CAD s/p CABG on Eliquis and plavix admitted with nausea, vomiting, diarrhea likely from viral gastroenteritis c/b MONALISA, lactic acidosis, hypokalemia. His N/V has resolved and renal function appears to be improving with supportive measures. Renal following. Stool studies negative. - continue supportive care - continue probiotic for now - on PPI for GERD - antiemetics as needed - I/O, BM counts - replete lytes prn - advance diet as tolerated - consider discontinuing empiric antibiotics Will follow with you
[2018-09-20] MEDS: TYLENOL PO PRN ×2 (00:35→06:22)
[2018-09-20] MEDS: SODIUM BICARBONATE 8.4% 150 MEQ in STERILE WATER INJ. 1,000 ML IV SCH (02:51)
[2018-09-20] MEDS ORDERED: NS 1,000 ML ONE (04:44)
[2018-09-20 07:25] LABS: CALCIUM 7.7 mg/dL (8.8-10.2); PHOSPHORUS 3.6 mg/dL (2.7-4.5); POTASSIUM 2.8 mmol/L (3.5-5.1)
--- NOTE | 2018-09-20 09:17 | PROVIDER PROGRESS NOTE ---
Progress Note SUBJECTIVE: No acute overnight events. Afebrile. Patient complains of headache; otherwise, he does not have any other complaints. He had one loose stool yesterday that was nonbloody. No N/V/F, CP, SOB, abdominal pain. OBJECTIVE: Last Vital Signs Temp 98.0 F 09/20/18 07:36 Pulse 47 L 09/20/18 07:36 Resp 16 09/20/18 07:36 BP 150/41 09/20/18 07:36 Pulse Ox 97 09/20/18 08:35 Height 5 ft 8 in Weight 180 lb GEN: awake, alert, NAD HEENT: anicteric, MMM, EOMI NECK: supple, no jvd PULM: CTAB CV: RRR, no murmurs ABD: soft NT,ND, NABSx4 EXT: no cce NEURO: nonfocal : jackson in place LABS: 09/20/18 06:54 Sodium 139 Potassium 2.8 L Chloride 102 Carbon Dioxide 25 BUN 45 H Creatinine 4.0 H Glucose 115 H A/P: Mr. Leobardo Galvan is a 72 year old man with afib, GERD, CAD s/p CABG on Eliquis and plavix admitted with nausea, vomiting, diarrhea likely from viral gastroenteritis c/b MONALISA, lactic acidosis, hypokalemia. His N/V has resolved and renal function appears to be improving with supportive measures. Renal following. Stool studies negative. Labs show persistent hypokalemia #Viral gastroenteritis: improved; continue supportive care; no indication for antibiotics at this time since stool studies negative; patient OK from GI standpoint for discharge #MONALISA: improving; renal following; renally dose meds #N/V: resolved #Headache: defer mgmt to primary #GERD: continue PPI #Hypokalemia: replete K #Lactic acidosis: resolved Recommend patient follow-up with Dr. Sanchez upon discharge. Please call with questions
[2018-09-20] MEDS ORDERED: NS 1,000 ML IV SCH (09:45)
[2018-09-20] MEDS ORDERED: POTASSIUM CHLORIDE 20 MEQ/SWI 20 MEQ/100 ML IVPB IV SCH (10:00)
[2018-09-20] MEDS: PROTONIX IV SCH (10:46)
[2018-09-20] MEDS: CULTURELLE PO SCH (10:46)
[2018-09-20 11:16] VITALS: BP 164/64
--- NOTE | 2018-09-20 14:59 | NEPHROLOGY PROGRESS NOTE ---
DATE: 09/20/2018 SUBJECTIVE: He states he is being discharged today. He still has loose bowels, but more formed. No nausea or vomiting. OBJECTIVE: Vital Signs: Blood pressure is 164/64, heart rate 47, respirations 20, afebrile. General: No acute distress. Skin: Warm and dry. Neck: Neck veins are not distended. Heart: Regular. Lungs: Equal. No crackles. Extremities: Have no edema, clubbing, or cyanosis. IMPRESSION: Acute kidney injury. Presumably secondary to intravascular volume depletion in the context of angiotensin receptor thiago. He is improving on a daily basis. I counseled him about fluid intake, as well as some sodium intake, and monitoring his weight on a daily basis. He sees Dr. Magalys Driscoll and has a plan for follow-up labs within a week. We are glad to see him as an outpatient if Dr. Driscoll desires. cc: Emiliano Abad MD
--- NOTE | 2018-09-20 21:18 | DISCHARGE SUMMARY ---
ADMISSION DATE: 09/17/2018 DISCHARGE DATE: 09/20/2018 DISPOSITION: Home. FOLLOW-UP: 1. Dr. Magalys Driscoll. 2. Dr. Emiliano Abad. 3. Dr. Chepe Hernandez. CONSULTATIONS DURING THIS ADMISSION: 1. GI was consulted. The patient was seen by Dr. Hernandez. 2. Nephrology was consulted. The patient was seen by Dr. Abad. 3. Cardiology was consulted. The patient was seen by Dr. Freeman. INVASIVE PROCEDURES DURING ADMISSION: None. IMAGING STUDIES OF SIGNIFICANCE: 1. A chest x-ray revealed cardiomegaly and mild pulmonary edema. 2. A CT scan of the abdomen and pelvis showed possibility of enterocolitis. No evidence of abscess or acute diverticulitis. 3. A renal ultrasound showed no evidence of acute disease or obstructive uropathy. 4. A repeat chest x-ray showed some lingular atelectasis versus pneumonia. ADMISSION DIAGNOSES: 1. Sepsis. 2. Hypovolemia. 3. [id number] metabolic acidosis. 4. Acute renal failure. 5. History of coronary artery disease. DIAGNOSES AT THE TIME OF DISCHARGE: 1. Hypovolemic shock on presentation, improved. 2. [id number] metabolic acidosis due to lactic acid, resolved. 3. Acute kidney injury. Creatinine is on downward trend. The patient is making adequate urine. 4. Enterocolitis. Negative stool cultures. This is presumed to be viral in etiology. 5. History of coronary artery disease status post coronary artery bypass graft. 6. Atrial fibrillation with rapid ventricular response on admission, resolved. 7. Clinical volume depletion, improved. 8. Chronic recurrent headaches, presumably migraine. Patient follows up with primary care doctor. DISCHARGE MEDICATIONS: 1. Amlodipine 2.5 p.o. daily. 2. Clopidogrel 75 mg daily. 3. Hytrin 2 mg b.i.d. 4. Atorvastatin 20 mg daily. 5. Cholecalciferol. 6. Glipizide 5 mg daily. 7. Lactobacillus. 8. Apixaban 2.5 b.i.d. MEDICATIONS THAT HAVE BEEN DISCONTINUED: 1. Lisinopril. 2. Metformin. MEDICATIONS OF WHICH DOSES HAVE BEEN CHANGED.: 1. Glipizide has been reduced to only 5 mg once per day. 2. Apixaban has also been reduced to 2.5 b.i.d. until the renal function is completely resolved. DISCHARGE INSTRUCTIONS: The patient is advised to continue adequate oral hydration at least 2 L per day, avoid any nephrotoxins and repeat BMP in 1 week's time. FOLLOWUP: With his primary care doctor and/or Dr. Abad. PRESENTING COMPLAINT: Nausea, vomiting and diarrhea. HISTORY OF PRESENTING COMPLAINT: Mr. Galvan is a 72-year-old male with a history of atrial fibrillation and coronary artery disease, and diabetes, who presented to the hospital because of 3-day history of constant watery stools that were not improving at the at home, and he was and he was having generalized weakness. Upon presentation, he was found to be remarkably dehydrated with renal failure, with also atrial fibrillation/rapid ventricular response. He was subsequently admitted for management. HOSPITAL COURSE: Mr. Galvan was initially admitted to the ICU and was adequately fluid resuscitated. At some point he was put on Arron-Synephrine because of hypotension. His blood pressures continued to improve, and the Arron-Synephrine was discontinued. He continued on the IV fluids, and gradually the diarrhea also got better. His cultures so far have all been negative. C difficile is also negative, and his urine culture is also negative. The patient was evaluated during the hospital course by GI who continued to recommend symptomatic management. Cardiology also evaluated him because of atrial fibrillation/RVR, and they recommended to treat the underlying ongoing dehydration and the acid-base disturbances. Nephrology was consulted. Throughout the hospital course, Mr. Galvan continued to improve. This morning he feels a lot stronger. He has had only 1 bowel movement and there was some consistency to it. His lab work has been reviewed. The low potassium has been replaced. His plasma lactate has also normalized. This morning his blood pressure is 164/64, pulse is 83, respirations 20, temperature 97.4. The patient was saturating about 97% on room air. Mr. Galvan's physical exam is completely unremarkable. His hydration status has significantly improved. He is currently euvolemic. He is therefore in stable condition to be discharged. He has been advised to avoid any nephrotoxins, and there are certain medications that have also been discontinued from his medication list. He has been advised to always drink about 2 L per day in fluids and repeat his renal functions in about a week, and follow up with his primary care doctor and/or with Nephrology. All the discharge instructions have been discussed with him the was at the bedside at the time of the encounter. Both of them expressed and voiced understanding. Discharge time is 40 minutes. cc: MD Magalys Aguilar MD Michael Kelso, MD Luis N. Villanueva, MD
== END 2018-09-20 13:09 | disposition home health service (06) | DRG 682 ==
LOC: SUPCPDRO → ED 09:56 → EDIPHOLD 15:38 → 3N 09-18 13:14
PROVIDERS: ATTEND Internal Medicine
CPT/HCPCS: 51702; 71010; 71045; 74176; 76770; 80048; 80053; 80069; 81001; 82306; 82550; 82553; 82570; 82805; 82948; 83605; 83735; 83930; 83935; 84145; 84156; 84300; 84443; 84484; 85025; 85651; 86140; 87040; 87088; 87177; 87205; 87324; 87449; 88313; 89055; 93005; 93010; 93306; 94761; 96361; 96365; 96366; 96367; 96368; 96375; 99285; 99291; A9270; C8929; C9113; J0692; J0878; J2370; J2543; J3370; J3475; J3480; J7030; J7050; J7120; Q9957; S0164; XXXXX